=== PATIENT | female | born 1975 | race Caucasian/White ===

== ENCOUNTER 2018-07-01 06:32 | Emergency (ER) | payer SELFPAY ==
[2018-07-01] MEDS ORDERED: DEXAMETHASONE 4 MG/ML VIAL ONE (07:01)
[2018-07-01] MEDS ORDERED: ONDANSETRON 4 MG/2 ML VIAL ONE (07:01)
[2018-07-01] MEDS ORDERED: FAMOTIDINE 20 MG/2 ML VIAL IV ONE (07:01)
[2018-07-01] MEDS ORDERED: DIPHENHYDRAMINE 50 MG/ML VIAL ONE (07:01)
[2018-07-01 07:17] LABS: Absolute Monocytes 0.4 K/uL (0.1-1.3); Absolute Neutrophil 3.8 K/uL (1.8-8.0); Eosinophils % 5.5 % (0-4.4); Hematocrit 39.2 % (36.0-45.0); Lymphocytes % 38.9 % (15.3-44.8); Monocytes % 5.4 % (3.3-12.3); RBC Red Blood Cell Count 4.41 M/uL (3.86-4.86)
[2018-07-01 07:18] LABS: Protime INR 0.97
[2018-07-01 07:32] LABS: Albumin 3.2 g/dL (3.4-5.0); Bilirubin Direct 0.1 mg/dL (0-0.2); Bilirubin Total 0.4 mg/dL (0.2-1.0); Magnesium 1.8 mg/dL (1.8-2.4); Potassium 3.4 mmol/L (3.5-5.1)
--- NOTE | 2018-07-01 08:11 | RAD REPORT ---
EXAM DESCRIPTION: CT - Soft Tissue Neck W/Contr CLINICAL HISTORY: throat swelling Neck pain and swelling. COMPARISON: Head C Spine Mpr Wo Con dated 10/16/[address] scans are performed using dose optimization technique as appropriate and may includ e automated exposure control or mA/KV adjustment according to patient size. FINDINGS: Mild enlargement of the nasopharyngeal, palatine and lingual tonsils noted. No peritonsill ar abscess or other pathologic fluid collections in the neck. The uvula is mildly edematous. There is under-aeration of the right aspect of the vallecula and pirif orm sinus. Epiglottis is normal in thickness. Aryepiglottic folds are not pathologically thickened. V ocal cords are normal. No prevertebral fluid or abscess seen. Few mildly prominent bilateral jugular digastric lymph nodes a re seen. Right-sided ventriculostomy shunt tubing is partially imaged. IMPRESSION: Tonsillar enlargement is present without abscess or other pathologic fluid collection wi th the neck. Mild edematous appearance to the uvula is present. Under-aeration of the right vallecula and piriform sinuses noted.
--- NOTE | 2018-07-01 08:25 | RAD REPORT ---
EXAM DESCRIPTION: RAD - Chest Single View - 07/01/2018 7:26 am CLINICAL HISTORY: difficulty swallowing Chest pain. COMPARISON: Chest Pa And Lat (2 Views) dated 10/16/2015 FINDINGS: Portable technique limits examination quality. The lungs are grossly clear. The heart is normal in size. No displaced fractures.Right-sided shunt tu gustabo is present. IMPRESSION: No acute intrathoracic process suspected.
--- NOTE | 2018-07-01 09:25 | EKG ---
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
--- NOTE | 2018-07-01 09:57 | ER ---
Nurse's Notes [facility] Name: Nay Kunz Age: 43 yrs Sex: Female : 1975 Arrival Date: 07/01/2018 Time: 06:35 Bed 5 Private MD: Diagnosis: Uvulitis;Acute tonsillitis, unspecified Presentation: 07/01 06:50 Presenting complaint: Presenting complaint: Patient states: Pt reports she woke up an ea hour ago gagging, reports her uvula is swollen. stated this occurred earlier in the week. 06:50 Transition of care: patient was not received from another setting of care. Onset of ea symptoms was July 01, 2018. Risk Assessment: Do you want to hurt yourself or someone else? Patient reports no desire to harm self or others. Initial Sepsis Screen: Does the patient meet any 2 criteria? No. Patient's initial sepsis screen is negative. Does the patient have a suspected source of infection? No. Patient's initial sepsis screen is negative. Care prior to arrival: None. 06:50 Method Of Arrival: Wheelchair ea 06:50 Acuity: DANIELLA 3 ea Triage Assessment: 06:50 General: Appears in no apparent distress. uncomfortable. 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 - Social history:: Smoking status: Patient/guardian denies using tobacco. - Ebola Screening: : No symptoms or risks identified at this time. Screenin:13 Abuse screen: Denies threats or abuse. Nutritional screening: No deficits noted. ea Tuberculosis screening: No symptoms or risk factors identified. Fall Risk Assessment: 06:50 General: Appears in no apparent distress. Behavior is calm, cooperative, appropriate ea for age. Pain: Denies pain. Neuro: Level of Consciousness is awake, alert, obeys commands, Oriented to person, place, time, situation. Cardiovascular: Patient's skin is warm and dry. Respiratory: Airway is patent Respiratory effort is even, unlabored, Respiratory pattern is regular, symmetrical. Derm: Skin is pink, warm \T\ dry. Musculoskeletal: Circulation, motion, and sensation intact. 08:43 Reassessment: Patient appears in no apparent distress at this time. Patient and/or iw family updated on plan of care and expected duration. Pain level reassessed. Patient is alert, oriented x 3, equal unlabored respirations, skin warm/dry/pink. Vital Signs: 06:50 BP 160 / 117; Pulse 90; Resp 18; Temp 97.8; Pulse Ox 98% on R/A; ea 08:19 BP 139 / 98; Pulse 82; Resp 16; Pulse Ox 98% on R/A; iw ED Course: 06:35 Patient arrived in ED. am2 06:44 Benjamín Lucas PA is PHCP. cp 06:44 Julien Townsend MD is Attending Physician. cp 06:48 Inserted saline lock: 20 gauge in right antecubital area, using aseptic technique. ea Blood collected. 06:50 Arm band placed on right wrist. Patient placed in an exam room, on a stretcher, on ea pulse oximetry. 06:50 Patient has correct armband on for positive identification. Bed in low position. Call ea light in reach. Side rails up X2. 07:00 Roselyn Krishnan, CONNOR is Primary Nurse. iw 07:17 Triage completed. ea 07:22 Note: DELAY IN CXR DUE TO PATIENT NOT BEING PROPERLY DRESSED OUT FOR EXAM, CXR jb2 COMPLETED AND TOLERATED. 07:27 XRAY Chest (1 view) In Process Unspecified. EDMS 07:33 EKG done, by ED staff, reviewed by Benjamín LONDON. em1 07:39 CT completed. Patient tolerated procedure well. Patient moved to CT via wheelchair. sj Patient moved back from CT. 07:46 CT Soft Tissue Neck W/contr In Process Unspecified. EDMS 08:20 Porfirio Aguillon MD is Attending Physician. cp 10:20 No provider procedures requiring assistance completed. IV discontinued, intact, iw bleeding controlled, No redness/swelling at site. Pressure dressing applied. Administered Medications: 06:48 Drug: Benadryl 50 mg Route: IVP; Site: right antecubital; ea 06:49 Drug: Zofran 4 mg Route: IVP; Site: right antecubital; ea 06:50 Drug: Decadron - Dexamethasone 10 mg Route: IVP; Site: right antecubital; ea 07:10 Drug: Pepcid 20 mg Route: IVP; Site: right antecubital; ea 08:17 CANCELLED (Physician Discretion): Metoprolol 5 mg IVP once; Hold for SBP <100 or HR <60.cp 08:17 CANCELLED (Physician Discretion): Metoprolol 25 mg PO once cp Outcome: 09:57 Discharge ordered by MD. cp 10:21 Discharged to home ambulatory, with family. iw 10:21 Condition: good 10:21 Discharge instructions given to patient, family, Instructed on discharge instructions, follow up and referral plans. Demonstrated understanding of instructions, follow-up care, medications, Prescriptions given X 2. 10:22 Patient left the ED. iw Signatures: Dispatcher [employer] EDMS Rip Van Susan sj Williams, Irene, CONNOR RN Kilo Tyler em1 Benjamín Lucas PA PA Xiomy Reyes am2 Lisa Cohen RN RN ea Corrections: (The following items were deleted from the chart) 07:17 07:00 Presenting complaint: iw ea
--- NOTE | 2018-07-01 09:58 | EDPHYS ---
Physician Documentation [facility] Name: Nay Kunz Age: 43 yrs Sex: Female : 1975 Arrival Date: 07/01/2018 Time: 06:35 Bed 5 Private MD: ED Physician Porfirio Aguillon HPI: 07/01 06:47 This 43 yrs old Female presents to ER via Unassigned with complaints of cp Throat Swelling. 06:47 The patient presents with dysphagia, of liquids. Onset: The symptoms/episode cp began/occurred suddenly, this morning, upon awakening. 06:47 Severity of symptoms: in the emergency department the symptoms are unchanged, despite cp home interventions. Associated signs and symptoms: Pertinent negatives cough, diarrhea, fever, vomiting. Patient reports awakening 1 hour ago with swelling back of the throat. 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 - Social history:: Smoking status: Patient/guardian denies using tobacco. - Ebola Screening: : No symptoms or risks identified at this time. ROS: 06:50 Constitutional: Negative for body aches, chills, fever. cp 06:50 Eyes: Negative for injury, pain, redness, and discharge. cp 06:50 ENT: Positive for difficulty swallowing, Negative for drainage from ear(s), ear pain, difficulty handling secretions. 06:50 Neck: Negative for pain with movement, pain at rest, stiffness. 06:50 Cardiovascular: Negative for chest pain, palpitations. 06:50 Respiratory: Negative for cough, shortness of breath, wheezing. 06:50 Abdomen/GI: Negative for abdominal pain, vomiting, diarrhea, constipation. 06:50 : Negative for urinary symptoms. 06:50 Skin: Negative for cellulitis, rash. 06:50 Neuro: Negative for altered mental status, headache, weakness. 06:50 All other systems are negative. Exam: 07:00 Constitutional: The patient appears in no acute distress, alert, awake, cp non-diaphoretic, non-toxic, well developed, well nourished, uncomfortable. 07:00 Head/Face: Normocephalic, atraumatic. cp 07:00 Eyes: Periorbital structures: appear normal, Pupils: equal, round, and reactive to light and accomodation, Extraocular movements: intact throughout, Conjunctiva: normal, no exudate, no injection, Sclera: no appreciated abnormality, Lids and lashes: appear normal, bilaterally. 07:00 ENT: External ear(s): are unremarkable, Ear canal(s): are normal, clear, TM's: bulging, is not appreciated, bilaterally, dullness, bilaterally, erythema, is not appreciated, bilaterally, Nose: is normal, Mouth: Lips: moist, Oral mucosa: pink and intact, moist, Tongue: is normal, abscess, is not appreciated, drooling, is not appreciated, Posterior pharynx: Airway: patent, Tonsils: bilaterally enlarged, no erythema, no exudate, Uvula: midline, non-edematous, swelling, that is mild, erythema, is not appreciated, exudate, is not appreciated, Voice: is muffled. 07:00 Neck: ROM/movement: is normal, is supple, without pain, no range of motions limitations, no meningismus, no nuchal rigidity, Lymph nodes: no appreciated lymphadenopathy. 07:00 Chest/axilla: Inspection: normal, Palpation: is normal, no crepitus, no tenderness. 07:00 Cardiovascular: Rate: normal, Rhythm: regular, Edema: is not appreciated, JVD: is not appreciated. 07:00 Respiratory: the patient does not display signs of respiratory distress, Respirations: normal, no use of accessory muscles, no retractions, no splinting, no tachypnea, labored breathing, is not present, Breath sounds: are clear throughout, no decreased breath sounds, no stridor, no wheezing. 07:00 Abdomen/GI: Inspection: abdomen appears normal, Bowel sounds: active, all quadrants, Palpation: abdomen is soft and non-tender, in all quadrants, rebound tenderness, is not appreciated, voluntary guarding, is not appreciated, involuntary guarding, is not appreciated. 07:00 Skin: cellulitis, is not appreciated, no rash present. 07:00 Neuro: Orientation: to person, place \T\ time. Mentation: is normal, Cerebellar function: is grossly normal, Motor: is normal, Sensation: is normal. 07:57 ECG was reviewed by the Attending Physician. cp Vital Signs: 06:50 BP 160 / 117; Pulse 90; Resp 18; Temp 97.8; Pulse Ox 98% on R/A; ea 08:19 BP 139 / 98; Pulse 82; Resp 16; Pulse Ox 98% on R/A; iw MDM: 06:51 Patient medically screened. cp 09:56 Data reviewed: vital signs, nurses notes, lab test result(s), EKG, radiologic studies, cp CT scan, plain films, I have discussed the patient's presentation/case with the attending Emergency Department Physician;. 09:56 Differential diagnosis: epiglottitis, group A strep tonsillitis, ohward's angina, cp tonsillitis, uvulitis, angioedema, anaphylaxis. Counseling: I had a detailed discussion with the patient and/or guardian regarding: the historical points, exam findings, and any diagnostic results supporting the discharge/admit diagnosis, lab results, radiology results, the need for outpatient follow up, a family practitioner, to return to the emergency department if symptoms worsen or persist or if there are any questions or concerns that arise at home. Response to treatment: the patient's symptoms have markedly improved after treatment, VSS. Patient reports symptoms markedly improved and voice back to normal. Patient instructed to stop lisinopril medication immediately and f/u with primary physician. 07/01 06:47 Order name: Basic Metabolic Panel; Complete Time: 07:44 cp 07/01 08:19 Interpretation: Normal except: K 3.4; GLUC 190; GFR 75; CA 8.3. cp 07/01 06:47 Order name: CBC with Diff; Complete Time: 07:44 cp 07/01 09:54 Interpretation: Normal except: EOSINOPHIL % 5.5. cp 07/01 06:47 Order name: LFT's; Complete Time: 07:44 cp 07/01 06:47 Order name: Magnesium; Complete Time: 07:44 cp 07/01 06:47 Order name: PT-INR; Complete Time: 07:44 cp 07/01 06:47 Order name: Strep cp 07/01 06:47 Order name: XRAY Chest (1 view); Complete Time: 09:54 cp 07/01 06:48 Order name: CT Soft Tissue Neck W/contr; Complete Time: 08:18 cp 07/01 07:22 Order name: Throat Culture EDMS 07/01 06:47 Order name: EKG; Complete Time: 06:49 cp 07/01 06:47 Order name: Cardiac monitoring; Complete Time: 09:00 cp 07/01 06:47 Order name: EKG - Nurse/Tech; Complete Time: 07:33 cp 07/01 06:47 Order name: IV Saline Lock; Complete Time: 07:10 cp 07/01 06:47 Order name: Labs collected and sent; Complete Time: 07:10 cp 07/01 06:47 Order name: O2 Per Protocol; Complete Time: 07:10 cp 07/01 06:47 Order name: O2 Sat Monitoring; Complete Time: 07:10 cp 07/01 08:29 Order name: PO challenge; Complete Time: 08:58 cp EC:57 Rate is 82 beats/min. Rhythm is regular. DE interval is normal. QRS interval is normal. cp QT interval is normal. Interpreted by me. Reviewed by me. Administered Medications: 06:48 Drug: Benadryl 50 mg Route: IVP; Site: right antecubital; ea 06:49 Drug: Zofran 4 mg Route: IVP; Site: right antecubital; ea 06:50 Drug: Decadron - Dexamethasone 10 mg Route: IVP; Site: right antecubital; ea 07:10 Drug: Pepcid 20 mg Route: IVP; Site: right antecubital; ea 08:17 CANCELLED (Physician Discretion): Metoprolol 5 mg IVP once; Hold for SBP <100 or HR <60.cp 08:17 CANCELLED (Physician Discretion): Metoprolol 25 mg PO once cp Disposition: 15:40 Co-signature as Attending Physician, Porfirio Aguillon MD. rn Disposition: 07/01/18 09:57 Discharged to Home. Impression: Uvulitis, Acute tonsillitis, unspecified. - Condition is Stable. - Discharge Instructions: Tonsillitis, Uvulitis. - Prescriptions for Prednisone 20 mg Oral Tablet - take 3 tablet by ORAL route once daily for 5 days; 15 tablet. Zithromax Z- Bud 250 mg Oral Tablet - take 1 tablet by ORAL route as directed for 5 days Day 1 - take two (2) tablets one time. Day 2, 3, 4 , 5 take one (1) tablet once daily.; 6 tablet. - Medication Reconciliation Form, Thank You Letter, Antibiotic Education, Prescription Opioid Use form. - Follow up: Private Physician; When: 1 - 2 days; Reason: Recheck today's complaints. - Problem is new. - Symptoms have improved. - Notes: Stop Lisinopril blood pressure medication immediately Signatures: Dispatcher [employer] EDMS Roselyn Krishnan RN RN iw Porfirio Aguillon MD MD rn Page, Corey, PA PA cp Antunez, Elena RN CONNOR lezama Corrections: (The following items were deleted from the chart) 08:17 07:59 Metoprolol 5 mg IVP once; Hold for SBP <100 or HR <60. ordered. cp cp 08:17 07:59 Metoprolol 25 mg PO once ordered. cp cp 08:19 07:44 Normal except: K 3.4; GLUC 190; GFR 75. [facility] 10:22 09:57 07/01/2018 09:57 Discharged to Home. Impression: Uvulitis; Acute tonsillitis, iw unspecified. Condition is Stable. Forms are Medication Reconciliation Form, Thank You Letter, Antibiotic Education, Prescription Opioid Use. Follow up: Private Physician; When: 1 - 2 days; Reason: Recheck today's complaints. Problem is new. Symptoms have improved. cp
== END 2018-07-01 10:22 | disposition home or self-care (01) ==
LOC: ER 06:32
DX: K12.2 Cellulitis and abscess of mouth (principal); J03.90 Acute tonsillitis, unspecified; I10 Essential (primary) hypertension
CPT/HCPCS: 36415; 70491; 71045; 80048; 80076; 83735; 85025; 85610; 87070; 87081; 93005; 96374; 96375; 99284; J2405; Q9967